=== PATIENT | female | born 1945 | race Caucasian/White ===

== ENCOUNTER 2020-08-01 11:20 | Observation (INO) ==
[2020-08-01 11:57] LABS: Basophils # 0.1 K/mcL (0.0-0.2); Basophils % 0.5 %; Eosinophils # 0.1 K/mcL (0.0-0.6); Eosinophils % 0.5 %; Hematocrit 44.8 % (35.3-44.9); Hemoglobin 14.9 g/dL (11.5-15.4); Immature Granulocytes % 0.4 % (0-4); Lymphocytes # 1.7 K/mcL (0.6-4.6); Lymphocytes % 9.3 %; Mean Corpuscular HGB Conc 33.3 g/dL (31.6-35.5); Mean Corpuscular Hemoglobin 33.2 pg (28.0-33.3); Mean Corpuscular Volume 99.8 fL (83.0-100.0); Mean Platelet Volume 9.9 fL (9.4-12.4); Monocytes % 5.4 %; Neutrophils # 14.9 K/mcL (1.6-8.9); Platelet Count 350 K/mcL (140-400); Red Blood Count 4.49 M/mcL (3.82-4.97); Red Cell Distribution Width 13.4 % (11.5-14.5); Segmented Neutrophils % 83.9 %; White Blood Count 17.7 K/mcL (4.3-11.1)
[2020-08-01 12:08] LABS: BUN/Creatinine Ratio 12 (6-26); Blood Urea Nitrogen 9 mg/dL (8-23); Calcium 10.1 mg/dL (8.6-10.3); Carbon Dioxide 23 mEq/L (23-29); Chloride 96 mEq/L (98-107); Glucose 140 mg/dL (70-105); Osmolality,Calculated 275 (280-300); Sodium 132 mEq/L (136-145); Troponin I < 0.03 ng/mL (< 0.04); eGFR For African Americans > 60 (> 60); eGFR For Non-African Americans > 60 (> 60)
[2020-08-01] MEDS ORDERED: Isovue-370 500 ML BOTTLE IVP ONE (13:34)
[2020-08-01] MEDS ORDERED: cefTRIAXone 1,000 MG in Water for inj. (sterile) 10 ML IVP ONE (14:06)
[2020-08-01] MEDS ORDERED: Azithromycin 500 MG in D5% in Water 250 ML IVPB ONE (14:06)
[2020-08-01] MEDS ORDERED: Azithromycin 500 MG VIAL ONE (14:43)
[2020-08-01] MEDS ORDERED: methylPREDNISolone 125 MG/2 ML VIAL IVP ONE (14:54)
[2020-08-01] MEDS ORDERED: Ondansetron 4 MG/2 ML VIAL IVP PRN (15:28)
[2020-08-01] MEDS ORDERED: Naloxone 0.4 MG/ML INJ IVP PRN (15:28)
[2020-08-01] MEDS ORDERED: MOM Conc 10 ML UD.LIQ PO PRN (15:28)
[2020-08-01] MEDS ORDERED: Acetaminophen 325 MG TABLET PO PRN (15:28)
[2020-08-01] MEDS ORDERED: Mag Hydrox/Al Hydrox/Simeth 30 ML UDC PO PRN (15:28)
[2020-08-01] MEDS ORDERED: Ipratropium/Albuterol Neb 3 ML IH PRN (15:30)
[2020-08-01] MEDS: Ipratropium/Albuterol Neb 3 ML IH SCH ×2 (15:53→22:40)
[2020-08-01] MEDS: amLODIPine 5 MG TABLET PO SCH (16:21)
[2020-08-01] MEDS: MethylPREDNISolone 40 MG/ML VIAL IVP SCH ×2 (16:21→23:12)
[2020-08-01] MEDS: *HR* Heparin 5,000 UNIT/ML VIAL SQ SCH (16:25)
[2020-08-01] MEDS: Doxycycline 100 MG CAPSULE PO SCH (21:03)
[2020-08-01] MEDS: Budesonide/Formoterol 80/4.5 1 PUFF INH IH SCH (22:44)
[2020-08-02 01:26] LABS: Basophils % 0.1 %; Hematocrit 38.1 % (35.3-44.9); Immature Granulocytes % 0.4 % (0-4); Lymphocytes # 0.5 K/mcL (0.6-4.6); Lymphocytes % 4.1 %; Mean Corpuscular HGB Conc 33.6 g/dL (31.6-35.5); Mean Corpuscular Volume 98.2 fL (83.0-100.0); Mean Platelet Volume 10.2 fL (9.4-12.4); Monocytes % 0.3 %; Neutrophils # 11.2 K/mcL (1.6-8.9); Platelet Count 302 K/mcL (140-400); Red Blood Count 3.88 M/mcL (3.82-4.97); Red Cell Distribution Width 13.3 % (11.5-14.5); Segmented Neutrophils % 95.1 %; White Blood Count 11.8 K/mcL (4.3-11.1)
[2020-08-02 01:29] LABS: Hemoglobin 12.8 g/dL (11.5-15.4)
[2020-08-02 01:42] LABS: BUN/Creatinine Ratio 20 (6-26); Blood Urea Nitrogen 13 mg/dL (8-23); Calcium 9.3 mg/dL (8.6-10.3); Carbon Dioxide 24 mEq/L (23-29); Chloride 99 mEq/L (98-107); Glucose 201 mg/dL (70-105); Magnesium 1.8 mg/dL (1.6-2.6); Osmolality,Calculated 282 (280-300); Phosphorous 2.8 mg/dL (2.7-4.5); Potassium 3.7 mEq/L (3.5-5.1); Sodium 133 mEq/L (136-145); eGFR For African Americans > 60 (> 60); eGFR For Non-African Americans > 60 (> 60)
[2020-08-02] MEDS: Ipratropium/Albuterol Neb 3 ML IH SCH ×4 (03:37→22:34)
[2020-08-02] MEDS: *HR* Heparin 5,000 UNIT/ML VIAL SQ SCH ×2 (05:05→16:43)
[2020-08-02] MEDS: MethylPREDNISolone 40 MG/ML VIAL IVP SCH ×3 (09:03→22:59)
[2020-08-02] MEDS: Doxycycline 100 MG CAPSULE PO SCH ×2 (09:03→20:40)
[2020-08-02] MEDS: amLODIPine 5 MG TABLET PO SCH (09:03)
[2020-08-02] MEDS: Budesonide/Formoterol 80/4.5 1 PUFF INH IH SCH ×2 (10:12→22:34)
[2020-08-02] MEDS: *HR* HYDROcodone/Acet 5/325 mg TABLET PO PRN (23:58)
[2020-08-03] MEDS: Ipratropium/Albuterol Neb 3 ML IH SCH ×2 (04:08→10:58)
[2020-08-03 04:57] LABS: Hematocrit 37.4 % (35.3-44.9); Hemoglobin 12.7 g/dL (11.5-15.4); Mean Corpuscular Hemoglobin 33.8 pg (28.0-33.3); Mean Corpuscular Volume 99.5 fL (83.0-100.0); Mean Platelet Volume 10.3 fL (9.4-12.4); Platelet Count 338 K/mcL (140-400); Red Blood Count 3.76 M/mcL (3.82-4.97); Red Cell Distribution Width 13.3 % (11.5-14.5)
[2020-08-03 05:16] LABS: BUN/Creatinine Ratio 27 (6-26); Blood Urea Nitrogen 21 mg/dL (8-23); Calcium 9.8 mg/dL (8.6-10.3); Carbon Dioxide 22 mEq/L (23-29); Chloride 99 mEq/L (98-107); Glucose 203 mg/dL (70-105); Osmolality,Calculated 285 (280-300); Potassium 3.9 mEq/L (3.5-5.1); Sodium 133 mEq/L (136-145); eGFR For African Americans > 60 (> 60); eGFR For Non-African Americans > 60 (> 60)
[2020-08-03] MEDS: *HR* Heparin 5,000 UNIT/ML VIAL SQ SCH (05:30)
[2020-08-03 07:40] VITALS: BP 154/82
[2020-08-03] MEDS: amLODIPine 5 MG TABLET PO SCH (09:00)
[2020-08-03] MEDS: Doxycycline 100 MG CAPSULE PO SCH (09:00)
[2020-08-03] MEDS: MethylPREDNISolone 40 MG/ML VIAL IVP SCH (09:03)
[2020-08-03] MEDS: *HR* HYDROcodone/Acet 5/325 mg TABLET PO PRN (09:06)
[2020-08-03] MEDS ORDERED: FLU Vac QV 20-21 (6Month+)/PF 0.5 ML SYRINGE IM ONE (10:43)
[2020-08-03] MEDS: Budesonide/Formoterol 80/4.5 1 PUFF INH IH SCH (10:58)
== END 2020-08-03 11:34 | disposition home or self-care (01) ==
LOC: EMEROOARM 11:20 → 3BNU 11:20
PROVIDERS: ADMIT Internal Medicine; ATTEND Internal Medicine